=== PATIENT | female | born 2000 | race American Indian/Alaskan Native ===

== ENCOUNTER 2022-01-04 11:02 | Emergency (ER) | payer OTHER ==
[2022-01-04 11:34] VITALS: BP 142/82
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
== END 2022-01-04 15:40 | disposition home or self-care (01) ==
LOC: ED 11:02
DX: S20.219A Contusion of unspecified front wall of thorax, initial encounter (principal); V89.2XXA Person injured in unspecified motor-vehicle accident, traffic, initial encounter; Y93.89 Activity, other specified; Y92.89 Other specified places as the place of occurrence of the external cause; Y99.8 Other external cause status
CPT/HCPCS: 71046; 99283

== ENCOUNTER 2022-01-11 01:19 | Emergency (ER) | payer SELFPAY ==
[2022-01-11] MEDS ORDERED: ACETAMINOPHEN W/CODEINE 300-30 MG TAB PO ONE (09:39)
[2022-01-11] MEDS ORDERED: predniSONE 20 MG TAB PO ONE (09:39)
--- NOTE | 2022-01-11 10:21 | XRay Report ---
CHEST 2 VIEWS INDICATION / CLINICAL INFORMATION: chest pain. COMPARISON: 01/04/2022 FINDINGS: SUPPORT DEVICES: None. HEART / MEDIASTINUM: No significant abnormality. LUNGS / PLEURA: No significant pulmonary or pleural abnormality. No pneumothorax. ADDITIONAL FINDINGS: Nipple shadows are noted. IMPRESSION: 1. No acute findings. Signer Name: John Briggs Jr, MD Signed: 01/11/2022 10:17 AM Workstation Name: [id number]
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
[2022-01-11 11:44] VITALS: BP 124/85
== END 2022-01-11 11:44 | disposition home or self-care (01) ==
LOC: ED 01:19
DX: R07.9 Chest pain, unspecified (principal); J02.9 Acute pharyngitis, unspecified
CPT/HCPCS: 71046; 99283